=== PATIENT | male | born 1975 | race Caucasian/White ===

== ENCOUNTER 2025-04-15 09:41 | Outpatient (AMB) | payer OTHER, SELFPAY ==
--- NOTE | 2025-04-15 09:47 | A.OFFVIS_ITS ---
Intake Visit Reasons: low sperm count/hx testicular cancer Intake Note: New Patient is present for low sperm count & PMHx Testicular Ca Urology Rx:none Blood Thinners:none Imaging completed: none Labs done 07/05/24 : PSA 1.3 Recorder Helper Seismograph Required: No Accompanied by: Self / Same As Patient Allergies codeine Allergy (Unknown, Verified 04/15/25 09:49) Unknown IVP contrast Allergy (Unknown, Uncoded 04/15/25 09:49) Unknown HPI Comments Details: Buzz is a pleasant male. He is a patient of Dr. Segovia. He seen for the following urologic conditions - testicular cancer - lower urinary tract symptoms Underwent orchiectomy with adjuvant chemotherapy number of years ago Is now developing weakness of stream occasional nocturia On exam well-healed incision Six-month follow-up PVR Review of Systems Const Denies chills and Denies fever(s) Card Reports no additional complaints and Denies syncope Resp Denies cough GI Denies abdominal pain and Denies heartburn Reports as per HPI and Denies change in libido Neuro Denies syncope Psych Denies change in libido Endo Denies change in libido Physical Exam Const General: cooperative, healthy appearing, comfortable and no acute distress Orientation/consciousness: patient oriented x3 HEENT Face and sinus: Yes normal facial exam Mouth: moist mucous membranes Neck Neck: Yes normal visual inspection, Yes full ROM and Yes trachea midline Chest Chest palpation & inspection: normal inspection of the chest Resp Effort & Inspection: normal respiratory effort, able to speak in complete sentences and no respiratory distress GI Inspection: Yes normal to inspection Back/Spine/Pelvis Cervical Spine: normal cervical lordosis Thoracic/Lumbar Spine: thoracic and lumbar spine normal to inspection Skin General skin exam: no rashes or lesions noted Neuro General: patient oriented x3, gait normal, tone normal and moves all extremities Extrem General: Yes normal to inspection and Yes capillary refill normal Results AMB Urinalysis, Automated UA Leukoctes 0 Adriana/uL Last Edit by LARISSA Pederson on 04/15/25 13:24 UA Nitrite Negative Last Edit by LARISSA Pederson on 04/15/25 13:24 UA Urobilinogen 0.2 mg/dL Last Edit by LARISSA Pederson on 04/15/25 13:24 UA Protein 0 mg/dL Last Edit by LARISSA Pederson on 04/15/25 13:24 UA pH 6.0 Last Edit by Sofy Colon, CCMA on 04/15/25 13:24 UA Blood 0 Ozzy/uL Last Edit by Sofy Colon, CCMA on 04/15/25 13:24 UA Specific [place] 1.015 Last Edit by Sofy Colon, CCMA on 04/15/25 13:2 4 UA Ketone Negative Last Edit by Sofy Colon, CCMA on 04/15/25 13:24 UA Bilirubin 0 mg/dL Last Edit by Sofy Colon, CCMA on 04/15/25 13:24 UA Glucose 0 mg/dL Last Edit by Sofy Colon, [facility] on 04/15/25 13:24 Results Reviewed Results Reviewed: Laboratory Last Values Urine pH (Auto) 6.0 04/15/25 13:23 Specific [place] (Auto) 1.015 04/15/25 13:23 Urine Protein (Auto) 0 mg/dL 04/15/25 13:23 Glucose (UA)(Auto) 0 mg/dL 04/15/25 13:23 Urine Ketones (Auto) Negative 04/15/25 13:23 Urine Blood (Auto) 0 Ozzy/uL 04/15/25 13:23 Urine Nitrite (Auto) Negative 04/15/25 13:23 Urine Bilirubin (Auto) 0 mg/dL 04/15/25 13:23 Urine Urobilinogen (Auto) 0.2 mg/dL 04/15/25 13:23 Leukocyte Esterase (Auto) 0 Adriana/uL 04/15/25 13:23 Assessment & Plan Assessment & Plan (1) Nocturia more than twice per night: Code(s): R35.1 - Nocturia Category: Medical Plan Six-month follow-up PVR Patient Instructions: This note is constructed using voice recognition software. While every effort has been made to ensure accuracy local bulk driver errors may have been included. Imaging studies, laboratory and physical exam results were discussed and reviewed in detail. No major barriers to patient understanding were identified. An opportunity to ask questions regarding the treatment plan was provided. All questions were answered. The patient expressed understanding and agreement with the above treatment plan. The patient is aware they should contact our office by phone for worsening of their current condition or the appearance of new urologic symptoms. Compliance is encouraged with any medications and followup testing that is ordered. It is a privilege to participate in the urologic care of your patient. If you have any questions or concerns regarding treatment for the above conditions, or other urologic issues, please do not hesitate to contact me. The office telephone contact is [phone]. Sincerely, Dr Mau Snow MD, [facility] - Urology Compassionate Specialist Care for the Genitourinary System Coding Level of Care Code New Pt Level 3 (05175) Diagnoses Nocturia more than twice per night R35.1
--- OUTSIDE RECORDS SUMMARY | 2025-04-15 11:12 | XMS_ITS | Clinical Summary ---
Author Organization [address] [place] [address] Address [address] [place] [address] Phone Care Team Providers Care Core Cleaner Name Role Phone Vignesh Segovia MD Primary Care Provider [phone] Social History Tobacco Use Types Packs/Day Years Used Date Smoking Tobacco: Never Assessed Sex and Gender Information Value Date Recorded Sex Assigned at Not on file Legal Sex Male 6:03 PM EST Gender Identity Not on file Sexual Orientation Not on file Plan of Treatment Health Maintenance Due Date Last Done Comments Colorectal Cancer Screening: Colonoscopy 1974 DTaP,Tdap,and Td Vaccines (1 - Tdap) 1993 Hepatitis B Vaccines (1 of 3 - 19+ 3-dose series) 1993 Cholesterol Screening (Lipid Panel) 05/21/2022 HIV Screening 05/21/2022 Hepatitis C Screening 05/21/2022 Social Influencers of Health Screening 05/21/2022 Depression Screening 06/19/2024 Pneumococcal Vaccine: 50+ Ye ars (1 of 1 - PCV) 2024 Zoster Vaccines (1 of 2) 2024 COVID-19 Vaccine ( - 2023-2 5 season) 2025 Influenza Vaccine (#1) 2025 RSV Immunization Adult Patie nts (1 - 1-dose 75+ series) 2049 HIB Vaccines Aged Out No longer eligi ble based on patient's age to complete this topic HPV Vaccines Aged Out No longer eligi ble based on patient's age to complete this topic Hepatitis A Vaccines Aged Out No long er eligible based on patient's age to complete this topic IPV Vaccines Aged Out No longer eligi ble based on patient's age to complete this topic MMR Vaccines Aged Out No longer eligi ble based on patient's age to complete this topic Meningococcal ACWY Vaccine Aged Out N o longer eligible based on patient's age to complete this topic Meningococcal B Vaccine Aged Out No l onger eligible based on patient's age to complete this topic RSV Immunization Patients Un derrell 20 months Aged Out No longer eligible b ased on patient's age to complete this topic Varicella Vaccines Aged Out No longer eligible based on patient's age to complete this topic Insurance Care Teams Core Cleaner Relationship Specialty Start Date End Date Vignesh Segovia MD [address] [place] [address] PCP - General Internal Medicine 10/25/24
== END 2025-04-15 10:42 | disposition home or self-care (01) ==
LOC: HO.HUSH 09:42
PROVIDERS: PCP Internal Medicine; Visit Provider Urology
DX: R35.1 Nocturia (principal)
CPT/HCPCS: 99203